=== PATIENT | male | born 1950 | race Caucasian/White ===

== ENCOUNTER → 2017-05-09 10:42 | Outpatient (CLI) | payer MEDICARE, BC, SELFPAY | PROVIDERS: Family Provider Internal Medicine; PCP Internal Medicine; Visit Provider Nurse Practitioner Gerontology | DX: R00.2 Palpitations (principal) | CPT/HCPCS: 93225; 93226 ==

== ENCOUNTER → 2017-06-06 09:28 | Outpatient (CLI) | payer MEDICARE, BC, SELFPAY ==
--- NOTE | 2017-06-06 09:35 | ECHOD_ITS ---
Reason For Study: PALPITATIONS Procedure This was a 2D Doppler, Color Flow transthoracic echocardiogram. Exam performed in department. Left Ventricle Normal LV size. Left ventricular systolic function is normal. The estimated ejection fraction is 60 %. Transmitral diastolic flow velocities suggest mild (stage 1) diastolic dysfunction (reversed pattern). No regional wall motion abnormalities noted. Right Ventricle Normal RV size. Normal systolic function. Atria The left atrium is mildly enlarged. Normal right atrium. Bubble contrast study negative for right to left interatrial shunt. Mitral Valve Normal mitral valve. Tricuspid Valve Normal tricuspid valve. Unable to estimate RV systolic pressure, pulmonary artery pressure probably normal. Aortic Valve Trisinus/trileaflet aortic valve. Mild focal aortic valve calcification. Pulmonic Valve Normal pulmonic valve. Great Vessels Normal aortic root. The pulmonary artery is normal size. Normal inferior vena cava. Pericardium/Pleural No pericardial effusion. Medication 22 gauge I.V. with prn adaptor inserted into right arm. Performed a rapid injection of agitated mix of 9 cc saline and 1cc air to assess for atrial septal defect. MMode/2D Measurements & Calculations LVIDd: 4.7 cm IVSd: 0.92 cm Ao root diam: 3.2 cm LVIDs: 3.3 cm LVPWd: 0.93 cm RVDd: 2.6 cm FS: 30.7 % LAV(MOD-bp): 64.7 ml EDV(MOD-sp4): 108.3 ml SV(MOD-sp4): 64.7 ml LAV(MOD-bp) Indexed: 30.2 ml/m2 ESV(MOD-sp4): 43.6 ml LAV(MOD-sp2): 66.6 ml EF(MOD-sp4): 59.7 % LAV(MOD-sp4): 59.4 ml LA A4 area: 20.4 cm2 RA A4 area: 12.9 cm2 Time Measurements MV dec time: 0.20 sec Doppler Measurements & Calculations MV E max dominick: 57.8 cm/sec Lat Peak E' Dominick: 13.0 cm/sec Med Peak E' Dominick: 8.0 cm/sec MV A max dominick: 55.6 cm/sec E/E' lat: 4.4 E/E' med: 7.2 MV E/A: 1.0 Ao V2 max: 138.1 cm/sec LV V1 max: 105.8 cm/sec PA V2 max: 85.1 cm/sec Ao max P.6 mmHg LV V1 max P.5 mmHg Interpretation Summary Normal LV size. Left ventricular systolic function is normal. The estimated ejection fraction is 60 %. Transmitral diastolic flow velocities suggest mild (stage 1) diastolic dysfunction (reversed pattern). The left atrium is mildly enlarged. Bubble contrast study negative for right to left interatrial shunt. Unable to estimate RV systolic pressure, pulmonary artery pressure probably normal. Ordering Physician: Yajaira Romero Referring Physician: Yajaira Romero Performed By: Rosetta Ratliff RDCS
== END ==
PROVIDERS: Family Provider Internal Medicine; PCP Internal Medicine; Visit Provider Internal Medicine
DX: R00.2 Palpitations (principal)
CPT/HCPCS: 93306; A4216

== ENCOUNTER → 2018-02-15 08:26 | Outpatient (CLI) | payer MEDICARE, BC, SELFPAY ==
--- NOTE | 2018-02-15 08:31 | US_ITS ---
STUDY: SUPERFICIAL ULTRASOUND - LEFT NECK REASON FOR EXAM: Male, 68 years old. Palpable lump in the left neck TECHNIQUE: A superficial ultrasound was performed with real-time and static gutierrez-scale imaging. COMPARISON: None. FINDINGS: Area of palpable lump was imaged. This is the left submandibular gland measuring 2.9 x 2.7 x 1.0 cm. There is a small subadjacent normal-appearing lymph node measuring less than 1 cm. The contralateral right submandibular gland was also imaged for comparison measuring 2.7 x 3.3 x 0.8 cm. US/Head/Neck Soft Tissue IMPRESSION: Slight prominence of the left submandibular gland as compared to the right. Electronically Signed: Juan Wong DO at 9:37 EST Tel , Service support ,
== END ==
PROVIDERS: Family Provider Internal Medicine; PCP Internal Medicine; Referring Provider Internal Medicine; Visit Provider Internal Medicine
DX: R22.1 Localized swelling, mass and lump, neck (principal)
CPT/HCPCS: 76536

== ENCOUNTER → 2018-03-02 12:25 | Outpatient (CLI) | payer MEDICARE, BC, SELFPAY ==
[2018-03-02 12:47] VITALS: BP 137/69; PULSE 60; RESP 16; O2SAT 97; BMI 29.2
--- NOTE | 2018-03-02 12:58 | CT_ITS ---
STUDY: CT CHEST WITHOUT CONTRAST REASON FOR EXAM: Male, 68 years old. Hyperlipidemia. Calcium scoring examination. Radiological over read examination. RADIATION DOSAGE (If Supplied By Facility): CTDIvol = ( 12.19 ) mGy, DLP = ( 195.04 ) mGycm TECHNIQUE: Transaxial imaging was performed without the administration of intravenous contrast material. Individualized dose optimization techniques were used for this CT. COMPARISON: None. FINDINGS: The lungs are normal. There is no demonstrated pleural abnormality. There are calcifications of the coronary arteries. Normal mediastinum. Normal hilar regions. Normal unenhanced pulmonary arteries. Normal aorta arch and descending thoracic aorta. There are degenerative changes of the thoracic spine. Moderate sized hiatal hernia. CT/Limited Chest CT w/CCTA IMPRESSION: Coronary artery calcification. Electronically Signed: Rupesh Escobar MD at 10:28 EST , Service support ,
--- NOTE | 2018-03-02 19:49 | CA.SCORE ---
Calcium Scoring Date of Study:: 03/02/18 Coronary Calcium Scoring: Coronary calcium score: 374 Conclusion: Coronary calcium score: 374 Results: The patient underwent a high resolution CT imaging of the chest with particular attention to the coronary arteries for examination of coronary artery calcification using coronary calcium quantification software. The patient was reported as tolerated the procedure well with no adverse events. The coronary calcium score was reported at 374. Based upon pre published reference tables a coronary calcium score of 374 would be considered compatible with moderate plaque burden and moderate nonobstructive coronary artery disease being considered a highly likely. Impression: Coronary calcium score: 374 This note was generated using a voice recognition system and there may be incorrect words, spelling or punctuation that were not noted when reviewing the office note prior to saving.
== END ==
PROVIDERS: Family Provider Internal Medicine; PCP Internal Medicine; Referring Provider Internal Medicine; Visit Provider Internal Medicine
DX: E78.5 Hyperlipidemia, unspecified (principal)
CPT/HCPCS: 75571; 76380

== ENCOUNTER → 2019-02-08 10:21 | Outpatient (CLI) | payer MEDICARE, BC, SELFPAY ==
[2018-03-02 12:47] VITALS: BMI 29.2
--- NOTE | 2019-02-08 10:24 | RAD_ITS ---
STUDY: X-RAY - RIGHT FOOT CLINICAL: Male, 69 years old. Treated for 4 months ago. Pain in the toes. TECHNIQUE: 3 view(s) of the foot. COMPARISON: None. FINDINGS: Generalized osteopenia. Normal talus, calcaneus, and tarsal bones. Normal visualized subtalar, talonavicular, calcaneocuboid, tarsal and tarsometatarsal articulations. Normal metatarsi. Normal metatarsophalangeal joint of the great toe. Normal tibial and fibular sesamoid bones. Normal interphalangeal joint of the great toe. Normal phalanges of the great toe. Normal second through fifth metatarsophalangeal joints. Normal interphalangeal joints and phalanges of the lesser toes. The soft tissue structures are unremarkable. RAD/Foot min 3 Views IMPRESSION: Osteopenia. There is no acute fracture or dislocation. Electronically Signed: Hector Ahmadi DO at 16:30 EST Tel [phone], Service support ,
== END ==
PROVIDERS: Family Provider Internal Medicine; PCP Internal Medicine; Referring Provider Internal Medicine; Visit Provider Internal Medicine
DX: M79.671 Pain in right foot (principal)
CPT/HCPCS: 73630

== ENCOUNTER → 2019-06-20 16:23 | Outpatient (CLI) | payer MEDICARE, BC, SELFPAY ==
[2018-03-02 12:47] VITALS: BMI 29.2
--- NOTE | 2019-06-20 16:27 | RAD_ITS ---
STUDY: X-RAY - LEFT ELBOW REASON FOR EXAM: Male, 69 years old. Pain after lifting table today. TECHNIQUE: 3 view(s) of the elbow. COMPARISON: None. FINDINGS: Normal visualized humerus, radius and ulna. Normal radiocapitellar and ulnotrochlear articulations. There is no acute fracture, dislocation or destructive osseous pathology. The soft tissue structures are unremarkable. RAD/Elbow min 3 Views IMPRESSION: Normal x-ray examination of the elbow. Electronically Signed: Hector Ahmadi DO at 16:51 EDT Tel [phone], Service support ,
--- NOTE | 2019-06-20 16:27 | RAD_ITS ---
STUDY: X-RAY - LEFT RADIUS AND ULNA REASON FOR EXAM: Male, 69 years old. Pain after lifting table. TECHNIQUE: 2 view(s) of the forearm. COMPARISON: Left elbow, June 20, 2019. FINDINGS: There is no demonstrated soft tissue swelling. Normal visualized radius. Normal visualized ulna. There is no acute fracture, dislocation or destructive osseous pathology. The wrist and elbow appear grossly normal. RAD/Forearm 2 Views IMPRESSION: Normal x-ray examination of the radius and ulna. Electronically Signed: Hector Ahmadi DO at 16:48 EDT Tel [phone], Service support ,
== END ==
PROVIDERS: PCP Internal Medicine; Referring Provider Internal Medicine; Visit Provider Internal Medicine
DX: M79.632 Pain in left forearm (principal); M25.522 Pain in left elbow
CPT/HCPCS: 73080; 73090

== ENCOUNTER → 2022-01-25 | Outpatient (CLI) | payer MEDICARE, BC, SELFPAY ==
--- NOTE | 2022-01-25 06:43 | ECHOD_ITS ---
Version 2 Reason For Study: Afib, Aflutter Procedure This was a 2D Doppler, Color Flow transthoracic echocardiogram. Exam performed in department. Left Ventricle Normal LV size. Left ventricular systolic function is normal. The estimated ejection fraction is 60 %. Stage 1 diastolic dysfunction. No regional wall motion abnormalities noted. Right Ventricle Normal RV size. Normal systolic function. Atria Normal left atrium. Normal right atrium. Mitral Valve Normal mitral valve. Tricuspid Valve Normal tricuspid valve. Mild tricuspid valve insufficiency. Aortic Valve Trisinus/trileaflet aortic valve. Mild focal aortic valve thickening. Mild (1+) aortic valve insufficiency. Pulmonic Valve Normal pulmonic valve. Great Vessels Normal aortic root. The pulmonary artery is normal size. Normal inferior vena cava. Pericardium/Pleural No pericardial effusion. MMode/2D Measurements & Calculations LVIDd: 5.2 cm IVSd: 1.1 cm Ao root diam: 3.5 cm LVIDs: 3.1 cm LVPWd: 1.1 cm RVDd: 3.7 cm FS: 40.2 % LAV(MOD-bp): 60.5 ml LVAd ap4: 28.6 cm2 SV(MOD-sp4): 48.6 ml LAV(MOD-bp) Indexed: 27.8 ml/m2 LVLd ap4: 7.9 cm LAV(MOD-sp2): 60.5 ml EDV(MOD-sp4): 81.3 ml LAV(MOD-sp4): 53.8 ml EDV(sp4-el): 87.9 ml LVAs ap4: 15.5 cm2 LVLs ap4: 6.0 cm ESV(MOD-sp4): 32.6 ml ESV(sp4-el): 33.7 ml EF(MOD-sp4): 59.9 % EF(sp4-el): 61.7 % SV(sp4-el): 54.2 ml LA A4 area: 20.1 cm2 LA dimension(2D): 5.0 cm RA A4 area: 12.2 cm2 Time Measurements MV dec time: 0.35 sec Doppler Measurements & Calculations MV E max dominick: 46.3 cm/sec Lat Peak E' Dominick: 9.2 cm/sec Med Peak E' Dominick: 6.2 cm/sec MV A max dominick: 58.2 cm/sec E/E' lat: 5.0 E/E' med: 7.5 MV E/A: 0.80 Ao V2 max: 125.0 cm/sec AI max dmoinick: 432.7 cm/sec LV V1 max: 96.8 cm/sec Ao max P.2 mmHg AI max P.9 mmHg LV V1 max P.7 mmHg Ao V2 mean: 81.8 cm/sec Ao mean P.0 mmHg AI dec slope: 197.5 cm/sec2 Ao V2 VTI: 26.9 cm AI P1/2t: 641.7 msec PA V2 max: 85.7 cm/sec TR max dominick: 199.5 cm/sec TR max P.9 mmHg ECHO/Echo Complete Interpretation Summary Normal LV size. Left ventricular systolic function is normal. The estimated ejection fraction is 60 %. Mild (1+) aortic valve insufficiency. Mild tricuspid valve insufficiency. Stage 1 diastolic dysfunction. Ordering Physician: Shad Mendoza Referring Physician: Yajaira Romero Performed By: Steph Worrell, RDALISSA, RVT
--- NOTE | 2022-01-25 16:06 | STRESSREP ---
Stress Test Report Exercise myocardial perfusion stress test. 71-year-old man with a history of atrial fibrillation Stress protocol: Resting EKG demonstrates normal sinus rhythm with a rate of 61 bpm resting blood pressure is 128/80 mmHg. The patient exercised according to the regular Dave protocol for a total duration of 5 minutes and 35 seconds attaining a maximum heart rate of 160 bpm which was 107% of max impacted heart rate the maximum workload was 7 metabolic equivalents. At rest there T wave changes where noted in leads III and aVF not diagnostic of ischemia and at peak exercise upsloping ST changes only were noted we did not meet the criteria for ischemia. No clinical angina was noted the test was terminated due to the target heart rate being achieved. Occasional premature ventricular complexes were noted. The peak blood pressure was 172/80 mmHg. Rate-pressure product was 25,400. Myocardial perfusion protocol. 11.5 mCi of technetium 99m sestamibi was injected at rest. The patient exercised according to regular Dave protocol for total duration of 5 minutes and 35 seconds and at peak exercise 35.8 mCi of technetium 99m sestamibi was injected stress images were obtained stress and rest images were reconstructed in comparing the short axis vertical long and horizontal long axis. Gated images were also obtained. Perfusion SPECT analysis: Review of the stress images demonstrate normal uptake of tracer noted in all areas of the myocardium. The resting images similarly demonstrate normal uptake of tracer noted in all areas of the myocardium. No areas of reversibility are noted to suggest ischemia no previous infarct was noted. Gated SPECT analysis: The gated ejection fraction is [66%]. Conclusion: Normal exercise myocardial perfusion stress test at a moderate workload. Preserved ejection fraction.
== END | disposition home or self-care (01) ==
PROVIDERS: PCP Internal Medicine; Referring Provider Internal Medicine Cardiovascular Disease; Visit Provider Internal Medicine Cardiovascular Disease
DX: I47.1 Supraventricular tachycardia (principal); I48.91 Unspecified atrial fibrillation; I48.92 Unspecified atrial flutter; R94.31 Abnormal electrocardiogram [ECG] [EKG]
CPT/HCPCS: 78452; 93017; 93225; 93226; 93306; A9500; A4216

== ENCOUNTER → 2024-11-15 | Outpatient (CLI) | payer MEDICARE, BC, SELFPAY ==
[2024-11-15 14:05] LABS: Hematocrit 42.9 % (40-54); Hemoglobin 14.6 g/dL (13.0-16.5); Immature Granulocytes Count 0.010 X10^3/uL (0.0-0.0); Mean Corp Hgb Conc 34.0 g/dL (32-36); Mean Corpuscular Volume 90.7 fL (80-94); Mean Platelet Vol. 10.7 fl (6.2-12.0); NRBC Flagged by Analyzer 0 % (0-5); Platelet Count 187 K/mm3 (150-450); RBC Distribution Width CV 11.8 % (11.6-14.6); RBC Distribution Width SD 39.1 fl (35.1-43.9); Red Blood Count 4.73 M/mm3 (4.6-6.2); White Blood Count 5.2 K/mm3 (4.4-11.0)
[2024-11-15 14:21] LABS: Color, Urine Yellow (Yellow); Glucose, Dipstick Normal (Normal); Ketone-Dipstick Negative (Negative); Leukocyte Esterase-Dipstick Negative /ul (Negative); Nitrite-Dipstick Negative (Negative); Occult Blood-Urine Negative /ul (Negative); Protein-Dipstick 15 mg/dl (Negative); Specific Gravity, Urine 1.015 (1.002-1.030); Urine Bilirubin Dipstick Negative (Negative)
[2024-11-15 14:35] LABS: Creatinine, Urine (random) 77.70 mg/dL (39.00-259.00); Microalbumin,Random Urine < 12.0 mg/L (<20 mg/L)
[2024-11-15 14:39] LABS: AST(SGOT) 26 U/L (<=37); Alanine Aminotransfer ALT/SGPT 36 U/L (<=46); Albumin, Serum 4.6 g/dL (3.4-4.8); Alkaline Phosphatase 121 U/L (40-129); Anion Gap 10 (5-15); BUN 17 mg/dL (4-19); BUN/Creat Ratio 19.8 RATIO (10-20); Calcium,Total 9.4 mg/dL (7.6-11.0); Carbon Dioxide 26.5 mmol/L (21.0-32.0); Chloride 103 mmol/L (98-108); Globulin 2.6 g/dL (2.2-4.2); Glucose 102 mg/dL (70-99); Potassium 4.1 mmol/L (3.3-5.1)
[2024-11-15 15:04] LABS: PSA,Total - Annual Screen 0.87 ng/mL (0.02-4.00)
== END | disposition home or self-care (01) ==
LOC: LABSPEC 12:46
PROVIDERS: PCP Internal Medicine; Referring Provider Internal Medicine; Visit Provider Internal Medicine
DX: Z12.5 Encounter for screening for malignant neoplasm of prostate (principal); R73.09 Other abnormal glucose
CPT/HCPCS: 80053; 81002; 82043; 82570; 84153; 85025; G0103